=== PATIENT | female | born 1940 | race Two or more races ===

== ENCOUNTER 2019-01-03 19:21 | Emergency (ER) | payer OTHER ==
[~2019-01-03] VITALS: Ht 162.6 cm; Wt 89.4 kg
[2019-01-03] MEDS ORDERED: CELLCEPT500 MG PO (19:51)
[2019-01-03] MEDS ORDERED: ALTACE10 MG PO (19:51)
[2019-01-03] MEDS ORDERED: SYNTHROID75 MCG PO (19:52)
[2019-01-03] MEDS ORDERED: FORTAMET1000 MG PO (19:52)
[2019-01-03] MEDS ORDERED: ZOCOR40 MG PO (19:53)
[2019-01-03] MEDS ORDERED: XANAX0.25 MG PO (19:54)
[2019-01-03] MEDS ORDERED: DELTASONE20 MG PO (19:54)
[2019-01-03] MEDS ORDERED: ALPHAGAN P5 ML OPHT (19:57)
[2019-01-03] MEDS ORDERED: LATANOPROST2.5 ML OPHT (19:58)
== END 2019-01-03 22:48 | disposition home or self-care (01) ==
LOC: ER 19:21
DX: J06.9 Acute upper respiratory infection, unspecified (principal); E11.65 Type 2 diabetes mellitus with hyperglycemia

== ENCOUNTER → 2019-01-09 | Emergency (ER) | payer OTHER ==
[~2019-01-09] VITALS: Ht 162.6 cm; Wt 89.4 kg
[~2019-01-09] MED LIST: ALPHAGAN P5 ML OPHT; ALTACE10 MG PO; CELLCEPT500 MG PO; DELTASONE20 MG PO; FORTAMET1000 MG PO; LATANOPROST2.5 ML OPHT; SYNTHROID75 MCG PO; XANAX0.25 MG PO; ZOCOR40 MG PO
== END | disposition home or self-care (01) ==
LOC: ER 12:24
DX: J22 Unspecified acute lower respiratory infection (principal); E11.65 Type 2 diabetes mellitus with hyperglycemia; B34.9 Viral infection, unspecified